=== PATIENT | female | born 1990 | race Caucasian/White ===

== ENCOUNTER → 2017-03-05 | Outpatient (CLI) | payer MEDICARE | LOC: NM 08:05 | DX: M86.072 Acute hematogenous osteomyelitis, left ankle and foot (principal); M79.89 Other specified soft tissue disorders | CPT/HCPCS: 78805; A9569 ==

== ENCOUNTER 2020-11-21 16:40 | Emergency (ER) | payer OTHER ==
[~2020-11-21] VITALS: Ht 188 cm; Wt 114.3 kg
[~2020-11-21 16:40] MED LIST: ADMELOG100 UNIT/1 SQ; ALENDRONATE SOD10 MG PO; ASPIRIN325 MG PO; BACTRIM DS TAB1 EACH PO; BACTROBAN OINT22 GM EXT; BASAGLAR K100 UNIT/1 SQ; BLACK COHOSH40 MG PO; BUPROPION HCL100 M1 PO; CIPRO500 MG PO; CLEOCIN HCL300 MG PO; COLACE 100MG C100 MG PO; CYCLOBENZAPRINE10 MG PO; DAKIN'S SOLUTI500 ML TOP; DEX4 GLUCOSE4 GM PO; DIFLUCAN 100 M100 MG PO; DIFLUCAN200 MG PO; DOK PLUS TABLE1 EACH PO; ENOXAPARIN40 MG/0.4 SC; FEOSOL325 MG PO; FERROUS SULFAT325 M2 PO; FLEXERIL 10 MG10 MG PO; FLUCONAZOLE100 MG PO; FOSAMAX70 MG PO; GABAPENTIN100 MG PO; GABAPENTIN300 MG PO; GLUCOPHAGE 500500 MG PO; GLUCOPHAGE500 MG PO; HUMALOG 10100 UNITS/ SC; HUMALOG MI100 UNIT/3 INJ; HYSEPT473 ML TOP; INVANZ 1 GM VIAL1 GM IV; LANTUS INS100 UTS/M1 SC; LANTUS INS100 UTS/M1 SQ; LANTUS SOL100 UNIT/1 SQ; LEVAQUIN500 MG PO; LEVEMIR100 UNIT/1 SQ; LISINOPRIL10 MG PO; LISINOPRIL2.5 MG PO; LISINOPRIL5 MG PO; LORTAB 7.5-3251 EACH PO; LOVENOX40 MG/0.4 SQ; MELATONIN10 M2 PO; MELATONIN5 M2 PO; MEROPENEM1 GM IV; METFORMIN HCL500 MG PO; MICONAZOLE 3200 MG PV; MOTRIN IB200 MG PO; NEURONTIN 100100 MG PO; NEURONTIN 300300 MG PO; NORCO 10-325 T1 EACH PO; NORCO 5-325 TA1 EACH PO; NORCO 7.5-3251 EACH PO; OMNICEF 300 MG300 MG PO; ONDANSETRON HCL4 MG PO; OZEMPIC SC; PERCOCET 7.5-31 EACH PO; PHENERGAN 25 MG25 M1 PO; POVIDONE-IOD28.35 GM TOP; PRINIVIL20 MG PO; PROTONIX40 MG PO; RESTORIL7.5 MG PO; ROCEPHIN 2 GM AD2 GM IV; SENNA S TABLET1 EACH PO; TRAMADOL HCL50 MG PO; TRANDATE 100 M100 MG PO; TRAZODONE HCL50 MG PO; TYLENOL 325MG325 MG PO; VITAMIN C 500500 MG PO; VITAMIN C500 M1 PO; VITAMIN D21250 MCG PO; VOLTAREN EC 5050 MG PO; ZOFRAN4 MG PO; ZOLOFT50 MG PO; ZOLPIDEM TARTRAT5 MG PO; ZYVOX IV 6600 MG/300 INJ; ZYVOX IV 6600 MG/300 IV
[2020-11-21 17:52] LABS: HEMOGLOBIN 12.5 gm/dl (12.3-15.3); RED BLOOD COUNT 4.97 M/UL (4.00-5.10); WHITE BLOOD COUNT 8.5 K/UL (4.5-11.0)
[2020-11-21 18:16] LABS: BUN/CREATININE RATIO 21 (0-10)
[2020-11-21] MEDS ORDERED: ZOLOFT100 MG PO (21:02)
[2020-11-21] MEDS ORDERED: HYDROCODON-ACE1 EAC4 PO (21:03)
[2020-11-21] MEDS ORDERED: CIPRO500 MG PO (21:05)
[2020-11-21] MEDS ORDERED: PHENERGAN 25 MG25 M1 PO (21:06)
[2020-11-21] MEDS ORDERED: TRANDATE 100 M100 MG PO (21:08)
[2020-11-21] MEDS ORDERED: BASAGLAR K100 UNIT/1 SQ (21:30)
[2020-11-21] MEDS ORDERED: TYLENOL 8 HOUR650 MG PO (21:34)
[2020-11-22 02:24] LABS: HEMOGLOBIN 11.8 gm/dl (12.3-15.3); RED BLOOD COUNT 4.64 M/UL (4.00-5.10); WHITE BLOOD COUNT 7.4 K/UL (4.5-11.0)
[2020-11-22 02:57] LABS: BUN/CREATININE RATIO 25 (0-10)
[2020-11-22] MEDS ORDERED: LOPRESSOR 50 MG50 MG PO (11:24)
== END 2020-11-22 14:21 | disposition home or self-care (01) ==
LOC: ER1 16:40 → CDU 20:08 → ER1 11-22 14:21
PROVIDERS: Family Medicine
DX: R00.0 Tachycardia, unspecified (principal); I48.92 Unspecified atrial flutter; R07.9 Chest pain, unspecified; Z20.822 Contact with and (suspected) exposure to COVID-19; I10 Essential (primary) hypertension; E11.42 Type 2 diabetes mellitus with diabetic polyneuropathy; E11.65 Type 2 diabetes mellitus with hyperglycemia; M14.679 Charcot's joint, unspecified ankle and foot; R94.31 Abnormal electrocardiogram [ECG] [EKG]; Z79.4 Long term (current) use of insulin; Z90.49 Acquired absence of other specified parts of digestive tract
CPT/HCPCS: ECHO; 0240U; 71045; 80053; 82550; 82553; 82962; 83874; 84439; 84443; 84484; 84703; 85025; 85610; 85730; 93005; 93270; 93306; 96372; 96374; 96375; 99285; Q9967

== ENCOUNTER → 2020-12-12 | Outpatient (CLI) | payer OTHER ==
[~2020-12-12] MED LIST changes: +HYDROCODON-ACE1 EAC4 PO; +LOPRESSOR 50 MG50 MG PO; +TYLENOL 8 HOUR650 MG PO; +ZOLOFT100 MG PO
== END ==
LOC: KOH-I 11:14
DX: M79.672 Pain in left foot (principal); M19.072 Primary osteoarthritis, left ankle and foot; Z98.890 Other specified postprocedural states
CPT/HCPCS: 73650

== ENCOUNTER 2021-12-02 22:07 | Inpatient (IN) | payer OTHER ==
[~2021-12-02] VITALS: Ht 188 cm; Wt 90.7 kg
[~2021-12-02 22:07] MED LIST changes: -HYDROCODON-ACE1 EAC4 PO; -MELATONIN5 M2 PO; -TYLENOL 8 HOUR650 MG PO; -VITAMIN D21250 MCG PO
[2021-12-02 23:01] LABS: HEMOGLOBIN 11.2 gm/dl (12.3-15.3); RED BLOOD COUNT 4.38 M/UL (4.00-5.10); WHITE BLOOD COUNT 6.5 K/UL (4.5-11.0)
[2021-12-02 23:14] LABS: BUN/CREATININE RATIO 17 (0-10)
[2021-12-03] MEDS ORDERED: ABILIFY 5 MG TAB5 MG PO (03:59)
[2021-12-03] MEDS ORDERED: VENLAFAXINE HC150 MG PO (04:01)
[2021-12-03] MEDS ORDERED: AMOX TR-K CLV1 EAC4 PO (04:02)
[2021-12-03] MEDS ORDERED: CIPROFLOXACIN750 MG PO (04:02)
[2021-12-03] MEDS ORDERED: VITAMIN D21250 MCG PO (12:32)
[2021-12-03] MEDS ORDERED: MELATONIN10 M2 PO (12:34)
[2021-12-03] MEDS ORDERED: DAKIN'S473 M1 TOP (14:56)
[2021-12-03] MEDS ORDERED: BASAGLAR K100 UNIT/1 SQ (14:57)
[2021-12-03] MEDS ORDERED: HUMALOG100 UNIT/1 SC (14:58)
[2021-12-03] MEDS ORDERED: NABUMETONE500 MG PO (15:01)
[2021-12-03] MEDS ORDERED: METFORMIN HCL500 MG PO (15:03)
[2021-12-03] MEDS ORDERED: LABETALOL HCL100 MG PO (15:05)
[2021-12-03] MEDS ORDERED: HYDROCODON-ACE1 EAC4 PO (21:03)
[2021-12-03] MEDS ORDERED: ACETAMINOPHEN500 MG PO (21:34)
[2021-12-04 05:19] LABS: BUN/CREATININE RATIO 19 (0-10)
[2021-12-04 18:15] LABS: AMPHETAMINES, URINE Negative ng/mL (Cutoff=1000); BARBITURATE Negative ng/mL (Cutoff=200); BENZODIAZEPINES Negative ng/mL (Cutoff=200); CANNABINOIDS Negative ng/mL (Cutoff=20); COCAINE (METABOLITE) Negative ng/mL (Cutoff=300); CREATININE 71.1 mg/dL (20.0-300.0); MEPERIDINE Negative ng/mL (Cutoff=200); METHADONE Negative ng/mL (Cutoff=300); OPIATES Negative ng/mL (Cutoff=300); PHENCYCLIDINE Negative ng/mL (Cutoff=25); PROPOXYPHENE Negative ng/mL (Cutoff=300)
[2021-12-05 03:10] LABS: HEMOGLOBIN 9.9 gm/dl (12.3-15.3); RED BLOOD COUNT 3.95 M/UL (4.00-5.10)
[2021-12-05 03:24] LABS: WHITE BLOOD COUNT 4.2 K/UL (4.5-11.0)
[2021-12-05 04:01] LABS: BUN/CREATININE RATIO 18 (0-10)
[2021-12-06 03:02] LABS: HEMOGLOBIN 9.6 gm/dl (12.3-15.3); RED BLOOD COUNT 3.81 M/UL (4.00-5.10)
[2021-12-06 03:15] LABS: WHITE BLOOD COUNT 5.4 K/UL (4.5-11.0)
[2021-12-06 04:11] LABS: BUN/CREATININE RATIO 14 (0-10)
[2021-12-07 03:28] LABS: HEMOGLOBIN 9.3 gm/dl (12.3-15.3); RED BLOOD COUNT 3.7 M/UL (4.00-5.10); WHITE BLOOD COUNT 5.9 K/UL (4.5-11.0)
[2021-12-07 03:50] LABS: BUN/CREATININE RATIO 14 (0-10)
[2021-12-08 05:10] LABS: HEMOGLOBIN 9.1 gm/dl (12.3-15.3); RED BLOOD COUNT 3.65 M/UL (4.00-5.10); WHITE BLOOD COUNT 5.4 K/UL (4.5-11.0)
[2021-12-08 05:30] LABS: BUN/CREATININE RATIO 19 (0-10)
[2021-12-10 02:45] LABS: HEMOGLOBIN 9.3 gm/dl (12.3-15.3); RED BLOOD COUNT 3.72 M/UL (4.00-5.10); WHITE BLOOD COUNT 5.2 K/UL (4.5-11.0)
[2021-12-10 03:04] LABS: BUN/CREATININE RATIO 20 (0-10)
[2021-12-10] MEDS ORDERED: LANTUS INS100 UTS/M1 SQ (11:50)
[2021-12-10] MEDS ORDERED: LOPRESSOR 25 MG25 MG PO (11:50)
[2021-12-10] MEDS ORDERED: GABAPENTIN300 MG PO (11:50)
[2021-12-12 03:22] LABS: HEMOGLOBIN 10.2 gm/dl (12.3-15.3); RED BLOOD COUNT 4.09 M/UL (4.00-5.10); WHITE BLOOD COUNT 5.8 K/UL (4.5-11.0)
[2021-12-12 03:44] LABS: BUN/CREATININE RATIO 17 (0-10)
--- NOTE | 2021-12-12 15:49 | NUR ---
[facility] CONTACTED NURSE AND STATED THAT IF PATIENT HADN'T LEFT IN ROUTE TO THEIR FACILITY THEY COULDN'T ACCEPT HER TODAY. [facility] NOTIFIED AND CALL WHEN TO CALL CENTER. MESSAGE LEFT FOR [facility] TO RETURN CALL. MACHINE SET UP TARA NOTIFIED. NOTIFIED AND PATIENT NOTIFIED. [facility] WILL ACCEPT PATIENT TOMORROW 12/13/21.
== END 2021-12-13 11:40 | DRG 854 ==
LOC: ER1 22:07 → M/S 12-03 01:43 → CDU 12-03 01:43 → M/S 12-03 03:00
PROVIDERS: Family Medicine; Internal Medicine; Internal Medicine Infectious Disease; Surgery; ADMIT Internal Medicine
PROC: 3E03329 Introduction of Other Anti-infective into Peripheral Vein, Percutaneous Approach (ICD-10-PCS; 2021-12-03)
PROC: 0Y6J0Z1 Detachment at Left Lower Leg, High, Open Approach (ICD-10-PCS; principal; 2021-12-05 08:00)
DX: A41.9 Sepsis, unspecified organism (principal); M86.8X7 Other osteomyelitis, ankle and foot; E87.1 Hypo-osmolality and hyponatremia; E11.621 Type 2 diabetes mellitus with foot ulcer; L97.529 Non-pressure chronic ulcer of other part of left foot with unspecified severity; E11.69 Type 2 diabetes mellitus with other specified complication; I10 Essential (primary) hypertension; F41.9 Anxiety disorder, unspecified; F32.A Depression, unspecified; E66.9 Obesity, unspecified; E11.65 Type 2 diabetes mellitus with hyperglycemia; J43.9 Emphysema, unspecified; E11.42 Type 2 diabetes mellitus with diabetic polyneuropathy; K21.9 Gastro-esophageal reflux disease without esophagitis; Z90.49 Acquired absence of other specified parts of digestive tract; Z90.722 Acquired absence of ovaries, bilateral; Z98.890 Other specified postprocedural states; Z83.3 Family history of diabetes mellitus; Z82.49 Family history of ischemic heart disease and other diseases of the circulatory system
CPT/HCPCS: 36415; 73630; 73700; 80048; 80053; 80202; 80307; 82550; 82553; 82962; 83036; 83540; 83550; 83605; 83735; 83880; 84100; 84439; 84443; 84484; 85025; 85027; 85652; 86140; 87040; 93005; 96365; 96375; 97110; 97110-GP-CQ; 97162; 97166; 97530; 97530-GP-CQ; 99284; J0692; J1650; J2185; J2250; J2270; J2370; J2405; J2543; J2704; J2765; J3010; J3370; J7030; J7070; J7120; U0002